=== PATIENT | female | born 1990 | race Caucasian/White ===

== ENCOUNTER 2016-08-03 13:39 | Observation (INO) | payer OTHER ==
[2016-08-03 14:07] VITALS: BP 136/87; PULSE 100
== END 2016-08-03 15:10 | disposition home or self-care (01) ==
LOC: OB 13:39
PROVIDERS: ADMIT Family Medicine; ATTEND Family Medicine
DX: Z34.03 Encounter for supervision of normal first pregnancy, third trimester (principal)
CPT/HCPCS: 59025; G0378

== ENCOUNTER 2016-08-22 18:12 | Observation (INO) | payer OTHER ==
[2016-08-22] MEDS ORDERED: XYLOCAINE 1% HCL 20 ML MDV IJ PRN (18:45)
[2016-08-22] MEDS ORDERED: BRETHINE 1 MG/ML SQ PRN (18:45)
[2016-08-22 19:28] LABS: Eosinophil % 0.8 % (0.00-5.0); Granulocytes % 70.1 % (36.0-66.0); Lymphocytes % 19.2 % (24.0-44.0); Mean Cell Volume 81.3 fl (78-100); Mean Platelet Volume 11.2 fl (6-9.5); Monocytes % 9.9 % (0.0-12.0); Platelet Count 239 K/mm3 (150-450); Red Blood Count 4.44 M/mm3 (4.1-5.4); Red Cell Distribution Width 14.9 % (11.5-14.0); White Blood Count 13.5 K/mm3 (4.0-10.5)
[2016-08-22] MEDS ORDERED: Cervidil 10 MG VAG SCH (19:30)
[2016-08-23] MEDS: Lactated Ringers 1,000 ML IV SCH ×2 (06:00→14:10)
[2016-08-23] MEDS ORDERED: PITOCIN 30 UNITS/ LR 500 ML 500 ML IV SCH (06:00)
[2016-08-23 15:15] VITALS: BP 141/88; PULSE 88
== END 2016-08-23 15:00 | disposition home or self-care (01) ==
LOC: OB 18:12
PROVIDERS: ADMIT Family Medicine; ATTEND Family Medicine
DX: O13.3 Gestational [pregnancy-induced] hypertension without significant proteinuria, third trimester (principal)
CPT/HCPCS: 36415; 80307; 85025; G0378; J2590

== ENCOUNTER 2016-08-24 07:03 | Inpatient (IN) | payer OTHER ==
[2016-08-24] MEDS ORDERED: XYLOCAINE 1% HCL 20 ML MDV IJ PRN (07:55)
[2016-08-24] MEDS ORDERED: BRETHINE 1 MG/ML SQ PRN (07:59)
[2016-08-24] MEDS ORDERED: PITOCIN 30 UNITS/ LR 500 ML 500 ML IV SCH ×2 (08:00)
[2016-08-24] MEDS: Lactated Ringers 1,000 ML IV SCH ×2 (08:31→15:00)
[2016-08-24 08:34] LABS: BASOPHIL % 0.2 % (0.0-0.4); Eosinophil % 1.9 % (0.00-5.0); Granulocytes % 65.4 % (36.0-66.0); Lymphocytes % 21.9 % (24.0-44.0); Mean Cell Volume 82.7 fl (78-100); Mean Corpuscular Hemoglobin 27.1 pg (26-32); Mean Platelet Volume 11.1 fl (6-9.5); Monocytes % 10.6 % (0.0-12.0); Platelet Count 221 K/mm3 (150-450); Red Blood Count 4.28 M/mm3 (4.1-5.4); Red Cell Distribution Width 15.3 % (11.5-14.0); White Blood Count 8.8 K/mm3 (4.0-10.5)
[2016-08-24] MEDS ORDERED: Lactated Ringers 1,000 ML IV ONE (14:57)
[2016-08-24] MEDS ORDERED: Ephedrine Sulfate 50 MG/ML IV PRN (14:57)
[2016-08-24] MEDS: OB EPIDURAL NAROPIN/SUFENTANIL IN NACL EPIDURAL PRN (16:40)
[2016-08-25] MEDS: Lactated Ringers 1,000 ML IV SCH ×2 (02:14→09:30)
[2016-08-25] MEDS: OB EPIDURAL NAROPIN/SUFENTANIL IN NACL EPIDURAL PRN (02:15)
[2016-08-25] MEDS ORDERED: TORAdol 30 mg Injection IV ONE (08:00)
[2016-08-25] MEDS ORDERED: Astramorph-Pf 5 MG/10 ML IV ONE (08:00)
[2016-08-25] MEDS ORDERED: Pitocin 10 UNITS/ML IV ONE (08:00)
[2016-08-25] MEDS ORDERED: Marcaine 0.5%/Epinephrine 10 ML IJ ONE (08:00)
[2016-08-25] MEDS ORDERED: BICITRA 30 ML CUP ONE (11:26)
[2016-08-25] MEDS ORDERED: Pepcid 20 MG VIAL IV ONE (11:26)
[2016-08-25] MEDS ORDERED: Reglan 10 MG/2 ML ONE (11:26)
[2016-08-25] MEDS ORDERED: Reglan 10 MG/2 ML IV SCH (11:30)
[2016-08-25] MEDS ORDERED: BICITRA 30 ML CUP PO SCH (11:30)
[2016-08-25] MEDS ORDERED: Pepcid 20 MG VIAL IV SCH (11:30)
[2016-08-25] MEDS ORDERED: KEFZOL 1 GM ONE (11:52)
[2016-08-25] MEDS ORDERED: Lactated Ringers 1,000 ML IV ONE ×2 (11:52→13:14)
[2016-08-25 11:54] LABS: INR 0.99 (0.8-3.0); Mean Cell Volume 82.2 fl (78-100); Mean Corpuscular Hemoglobin 26.9 pg (26-32); Mean Platelet Volume 11.5 fl (6-9.5); PROTIME 11.1 SECONDS (9.95-12.35); Platelet Count 244 K/mm3 (150-450); Red Blood Count 4.95 M/mm3 (4.1-5.4); Red Cell Distribution Width 15.8 % (11.5-14.0)
[2016-08-25 11:57] LABS: PTT 25.7 SECONDS (25.3-37.0)
[2016-08-25 12:46] LABS: Total Cells Counted 100
[2016-08-25 12:47] LABS: ANISOCYTOSIS 1+; Platelet Estimate NORMAL (NORMAL); Poikilocytosis 1+; Polychromasia 1+
[2016-08-25] MEDS ORDERED: DEMEROL 50 MG ONE (13:40)
[2016-08-25] MEDS ORDERED: DEMEROL 75 MG IM PRN (14:33)
[2016-08-25] MEDS ORDERED: Phenergan 25 MG INJ IM PRN (14:33)
[2016-08-25] MEDS ORDERED: Anucort-HC SUPPOSITORY PR PRN (14:35)
[2016-08-25] MEDS ORDERED: Dulcolax 10 MG SUPP PR PRN (14:35)
[2016-08-25] MEDS ORDERED: Ambien 10 MG PO PRN (14:35)
[2016-08-25] MEDS ORDERED: NORCO 5/325 MG PO PRN (14:35)
[2016-08-25] MEDS ORDERED: Mylicon 80MG PO PRN (14:35)
[2016-08-25] MEDS ORDERED: TUCKS TP PRN (14:35)
[2016-08-25] MEDS ORDERED: Dermoplast Spray TP PRN (14:35)
[2016-08-25] MEDS ORDERED: LANSINOH 40 GM TOP PRN (14:35)
[2016-08-25] MEDS ORDERED: CORTISONE 1% CREAM TP PRN (14:35)
[2016-08-25] MEDS ORDERED: MORPHINE SULFATE 2 MG INJ IV PRN (14:39)
[2016-08-25] MEDS ORDERED: PERCOCET TABLET 5/325MG PO PRN (14:39)
[2016-08-25] MEDS ORDERED: Nubain 10 MG/ML IV PRN (14:39)
[2016-08-25] MEDS ORDERED: HOLD NARCOTIC ANALGESICS AND SEDATIVES X24 HR MC PRN (14:39)
[2016-08-25] MEDS ORDERED: DEMEROL 50 MG IV PRN (14:39)
[2016-08-25] MEDS ORDERED: Narcan 0.4 MG/ML IV PRN (14:39)
[2016-08-25] MEDS ORDERED: BENADRYL 50 MG/ML IV PRN (14:39)
[2016-08-25] MEDS ORDERED: Zofran 4 MG/2 ML VIAL IV PRN (14:39)
[2016-08-25] MEDS ORDERED: CLARITIN 10 MG PO PRN (14:39)
[2016-08-25] MEDS ORDERED: Dextrose 5%-Lr IV Solution 1000 ML 1,000 ML IV SCH (15:00)
--- NOTE | 2016-08-25 16:30 | OP ---
SURGERY DATE/TIME: 08/25/2016 1222 PREOPERATIVE DIAGNOSIS: Arrest of descent. POSTOPERATIVE DIAGNOSIS: Arrest of descent. PROCEDURE: Primary low transverse section. SURGEON: Aakash Webb M.D. HEADING PINNER: Lia Hill M.D. ANESTHESIA: Spinal. ESTIMATED BLOOD LOSS: 400 cc. IV FLUIDS: 1500 cc of crystalloid. URINE OUTPUT: 250 cc clear straw-colored urine. SPECIMEN: None. DESCRIPTION OF PROCEDURE: After informed written consent was obtained the patient was taken to the operating room. She had already had laboring epidural dosed in the room per spinal anesthesia. She was prepped and draped in usual sterile fashion. After adequate level of anesthesia was assessed, a low transverse skin incision was made by knife and carried down to the subcutaneous fat to the level of the fascia. The fascia was nicked on both sides of the midline and extended in horizontal fashion using curved Villegas scissors. The superior free edge of the fascia was grasped with Rody clamps and the underlying rectus muscles were dissected free. The same was repeated inferiorly. The peritoneal cavity was opened carefully and extended in horizontal fashion. Bladder blade was inserted. Bladder flap was created and reflected over the lower uterine segment. Horizontal uterine incision was made by knife and carried down to the level of the amniotic membranes which were carefully artificially ruptured carefully. The uterine incision was then extended in horizontal fashion. A viable male infant was delivered from the vertex presentation with a strong cry immediately upon delivery. The cord was clamped and cut and then Dr. Hill robed and scrubbed to attend to the baby. The placenta was removed manually and the uterus was exteriorized. The uterine cavity was sponge curetted clean with lap sponge and then the uterine incision was closed with #1 chromic in a running locked fashion. Two layers were used to close the uterine incision with good hemostasis and good closure. There was a small extension in the left lateral portion of the incision which was closed on the inferior aspect using 0 Vicryl with good closure and good hemostasis. The posterior cul-de-sac was wiped free of blood and clot and the uterus was returned to the peritoneal cavity. The lateral gutters were wiped free of blood and clot. Again the uterine incision was inspected and noted to be hemostatic. The fascia layer was then closed with 0 Vicryl in a running fashion with good closure and good hemostasis. The subcutaneous fat was irrigated with warm, sterile saline and the skin layer was closed with 4-0 undyed Vicryl in a running subcuticular fashion. Steri-Strips and occlusive dressing were placed over the incision and the patient was transferred to the recovery room in excellent condition.
[2016-08-25] MEDS ORDERED: Nesacaine 3% -Mpf*** 20ML SDV IJ ONE (18:00)
[2016-08-25] MEDS: TYLENOL EXTRA STRENGTH 500 MG PO PRN (19:45)
[2016-08-25] MEDS: Colace 100 MG PO SCH (21:29)
[2016-08-25] MEDS: MOTRIN 400 MG PO PRN (22:56)
[2016-08-26] MEDS: TYLENOL EXTRA STRENGTH 500 MG PO PRN ×2 (01:54→21:13)
[2016-08-26] MEDS: MOTRIN 400 MG PO PRN ×2 (05:34→16:33)
[2016-08-26 06:30] LABS: Mean Cell Volume 83.2 fl (78-100); Mean Corpuscular Hemoglobin 27.3 pg (26-32); Mean Platelet Volume 11.4 fl (6-9.5); Platelet Count 197 K/mm3 (150-450); Red Blood Count 3.33 M/mm3 (4.1-5.4); Red Cell Distribution Width 15.5 % (11.5-14.0); White Blood Count 19.2 K/mm3 (4.0-10.5)
[2016-08-26 06:52] VITALS: O2SAT 99
[2016-08-26] MEDS: FERREX 150 PO SCH (10:09)
[2016-08-26] MEDS: Colace 100 MG PO SCH ×2 (10:09→21:13)
[2016-08-27] MEDS: MOTRIN 400 MG PO PRN ×2 (04:03→15:15)
[2016-08-27] MEDS: Colace 100 MG PO SCH (11:36)
[2016-08-27] MEDS: FERREX 150 PO SCH (11:37)
[2016-08-27 15:37] VITALS: BP 137/77; PULSE 80
--- NOTE | 2016-08-27 15:45 | PCM.DS ---
Discharge Summary Date of Admission: 08/24/16 14:53 Admitting Physician: ALYSSA RAMIREZ Consults: Consults on Case 08/24/16 14:57 Notify Anesthesia Provider PRN Primary Care Provider: ALYSSA RAMIREZ Allergies Allergies No Known Drug Allergies Allergy (Verified 08/24/16 08:27) Hospital Summary - Hospital Course Hospital Course: 25 yo G1Po at 391 weeks was admitted for the second time in 2 days for induction of labor due to induced hypertension. She had a previous admission two days before with cervadil overnight and pitocin all day. She did not make any cervical change so was sent home and came back the next morning for pitocin induction. After AROM she did start to make changes and the next morning was found to be complete. She pushed initially for about 30-45 min, then stopped to rest for an hour or so. She then pushed again for 2.5 hours and stopped making progress (FHT reassuring throughout labor). Pt was taken to surgery for with Dr. Webb. She did very well and recovered steadily until the day of discharge. Pt taking tylenol and motrin for pain as needed. Up out of bed. Bleeding nl. Hgb to 9.1. Pt to f/u in 1 week. - Vitals & Intake/Output Vital Signs: Vital Signs Temperature 98.4 F 08/27/16 15:00 Pulse Rate 80 08/27/16 15:00 Respiratory Rate 20 08/27/16 15:00 Blood Pressure 137/77 08/27/16 15:00 O2 Sat by Pulse Oximetry 99 08/26/16 06:55 Intake & Output: Intake & Output 08/25/16 08/26/16 08/27/16 08/28/16 11:59 11:59 11:59 11:59 Intake Total 1793 1500 Output Total 2100 1250 3 Balance -307 -1250 1497 Weight 83.461 kg - Lab Result Diagrams: 08/26/16 05:35 Micro Results-Entire Visit: Microbiology 08/25/16 12:38 Urine Culture - Final Catherized NO GROWTH 08/24/16 17:46 Urine Culture - Final Urine, Catheterized NO GROWTH Discharge Exam General Appearance: no apparent distress Neurologic Exam: alert, oriented x 3, cooperative Skin Exam: normal color, warm, dry Eye Exam: eyes nml inspection Respiratory Exam: normal breath sounds, lungs clear, No rhonchi, No wheezing Cardiovascular Exam: regular rate/rhythm, normal heart sounds, No murmur Gastrointestinal/Abdomen Exam: other (fundus firm under umbilicus. Wound clean ; there is minimal fresh blood on L lateral incision; no erythema or exudate, no crepitus.) Extremity Exam: pedal edema (trace) Back Exam: normal inspection Final Diagnosis/Problem List - Final Discharge Diagnosis/Problem (1) delivery delivered Current Visit: Yes Status: Acute Assessment & Plan: Doing great. Home today on tylenol and ibuprofen. (2) Anemia Current Visit: Yes Status: Acute Assessment & Plan: Iron deficiency; home on iron. - Discharge Disposition: Home, Self-Care Condition: Stable Prescriptions: New Breast Pump 1 each UD #1 each Ferrous Sulfate 325 mg [Feosol 325 mg] 325 mg PO DAILY #30 tablet Continue Vits W-Ca,Fe,FA(<1Mg) [] 1 tab PO DAILY Ranitidine HCl [Zantac] 150 mg PO DAILY
== END 2016-08-27 19:35 | disposition home or self-care (01) | DRG 766 ==
LOC: OB 07:03 → OBSVTOIN 14:53 → OB 14:53
PROVIDERS: ADMIT Family Medicine; ATTEND Family Medicine
PROC: 10D00Z1 Extraction of Products of Conception, Low, Open Approach (ICD-10-PCS; principal; 2016-08-25)
DX: O32.4XX0 Maternal care for high head at term, not applicable or unspecified (principal); O13.4 Gestational [pregnancy-induced] hypertension without significant proteinuria, complicating childbirth; Z3A.39 39 weeks gestation of pregnancy; Z37.0 Single live birth; D50.9 Iron deficiency anemia, unspecified
CPT/HCPCS: 01967; 36415; 85025; 85027; 85610; 85730; 86850; 86900; 86901; 87086; 94799; G0378; J0690; J1885; J2175; J2274; J2590; J2795; L0625; A9270-GY